=== PATIENT | female | born 1960 | race Caucasian/White ===

== ENCOUNTER 2017-06-07 11:32 | Inpatient (IN) | payer MEDICARE, MEDICAID ==
[~2017-06-07 11:32] MED LIST: AMLO5TAB2 PO; ASPI325T PO; CLON1TAB PO; DULO1CAP3 PO; LISI10TA3 PO; ONDANSETRON HCL 4 MG/2 ML VIAL IV PUSH ONE; PRAV40TA2 PO; PROPOFOL 200 MG/20 ML AMP IV ONE; TYLE650T9 PO; VITA100018 PO; ceFAZolin INJ 1,000 MG VIAL IV ONE; ePHEDrine/NS 25 MG/5 ML SYR IV ONE
[2017-06-07 11:40] VITALS: BP 140/64; PULSE 62; RESP 18; TEMP 97.7; O2SAT 98
--- NOTE | 2017-06-07 12:00 | RADRPT ---
EXAM DATE/TIME: 06/07/2017 11:42 [place] COMPARISON: No previous studies available for comparison. INDICATIONS : Left hand pain after smashing finger between weights MEDICAL HISTORY : None. SURGICAL HISTORY : None. ENCOUNTER: Initial ACUITY: 1 day PAIN SCORE: 10/10 LOCATION: Left 3rd digit FINDINGS: 2 views of the left hand demonstrate a comminuted displaced fracture of the third digit distal phalan x with extension of a fracture line into the distal interphalangeal joint. Fracture fragments are dis placed up to 4 mm. There is associated soft tissue swelling. There is also a tuft fracture of the sec ond digit distal phalanx. Mineralization is normal. No radiopaque foreign body is seen. CONCLUSION: 1. Comminuted displaced fracture of the third digit distal phalanx, as above. Fracture line extends i nto the interphalangeal joint. 2. There is a nondisplaced tuft fracture of the second digit distal phalanx. Papi Frye MD on June 07, 2017 at 11:56 Board Certified Radiologist. This report was verified electronically.
--- NOTE | 2017-06-07 12:29 | PD ---
HPI Chief Complaint: Injury Time Seen by Provider: 11:40 Travel History International Travel<30 days: No Contact w/Intl Traveler<30days: No Traveled to known affect area: No History of Present Illness HPI 56-year-old female with chief complaint of left second and third digit pain. She reports a 3 pound weight dropped from about 3 feet onto her left hand causing pain in the distal aspects of the second and third digit. She denies numbness or tingling. She has full range of motion of the digits. She reports the pain is constant, nonradiating, severity 8 out of 10. Tetanus immunization is up-to-date. PFSH Past Medical History Bipolar Disorder: Yes High Cholesterol: Yes Hypertension: Yes Psychiatric: Yes (MULTIPLE PERSONALITIES) Influenza Vaccination: No ?: Not Past Surgical History Eye Surgery: Yes (CATARACTS) Hysterectomy: Yes Tonsillectomy: Yes Social History Alcohol Use: Yes (VERY RARELY) Tobacco Use: No Substance Use: No Allergies-Medications (Allergen,Severity, Reaction): Coded Allergies: Lyrica (Verified Allergy, Severe, Rash, 06/07/17) Neurontin (Verified Allergy, Severe, Psychosis, 06/07/17) Cerumenex (Verified Allergy, Unknown, rash, 06/07/17) Reported Meds & Prescriptions Reported Meds & Active Scripts Active Reported Amlodipine (Amlodipine Besylate) 5 Mg Tab 10 Mg PO DAILY Aspirin 325 Mg Tab 325 Mg PO DAILY Clonazepam 1 Mg Tab 1 Mg PO QID Duloxetine DR (Duloxetine HCl) 60 Mg Capdr 60 Mg PO DAILY Lisinopril 10 Mg Tab 10 Mg PO DAILY Pravastatin 40 Mg Tab 40 Mg PO DAILY Review of Systems Except as stated in HPI: all other systems reviewed are Neg General / Constitutional: No: Fever Eyes: No: Visual changes HENT: No: Headaches Cardiovascular: No: Chest Pain or Discomfort Respiratory: No: Shortness of Breath Physical Exam Narrative GENERAL: Well-nourished, well-developed patient. SKIN: Focused skin assessment warm/dry. 0.25 cm avulsion skin injury left third digit distal lateral aspect. HEAD: Normocephalic. EYES: No scleral icterus. No injection or drainage. NECK: Supple, trachea midline. No JVD or lymphadenopathy. CARDIOVASCULAR: Regular rate and rhythm without murmurs, gallops, or rubs. RESPIRATORY: Breath sounds equal bilaterally. No accessory muscle use. GASTROINTESTINAL: Abdomen soft, non-tender, nondistended. MUSCULOSKELETAL: No cyanosis, or edema. Left hand: Third digit: Notable swelling/ecchymosis/tenderness to the distal phalanx with subungual hematoma. No nail bed injury. 0.25 cm avulsion skin injury left third digit distal lateral aspect. Second digit: Tenderness to the distal phalanx. No deformity. Normal sensation. BACK: Nontender without obvious deformity. No CVA tenderness. Data Data Last Documented VS Vital Signs Date Time Temp Pulse Resp B/P Pulse Ox O2 Delivery O2 Flow Rate FiO2 06/07/17 11:40 97.7 62 18 140/64 98 Orders Hand, Limited (2vws) (06/07/17 ) Basic Metabolic Panel (Bmp) (06/07/17 12:43) Complete Blood Count With Diff (06/07/17 12:43) Prothrombin Time / Inr (Pt) (06/07/17 12:43) Act Partial Throm Time (Ptt) (06/07/17 12:43) Electrocardiogram (06/07/17 12:43) Iv Access Insert/Monitor (06/07/17 12:43) Cefazolin 2 Gm Premix (Ancef 2 Gm Premix (06/07/17 12:45) Admit Order (Ed Use Only) (06/07/17 13:05) MDM Medical Decision Making Medical Screen Exam Complete: Yes Emergency Medical Condition: Yes Differential Diagnosis Crush injury, finger fracture, subungual hematoma, contusion Narrative Course 56-year-old female with left second and third digit injury caused by falling 3 pound weight. The extremity is neurovascular intact.: X-ray of the left hand comminuted displaced fracture extending into the IP joint of the left third distal phalanx. Nondisplaced comminuted fracture of the left second distal phalanx. Case was discussed with on-call hand surgeon who would like to take the patient to the OR for pinning and fracture repair. Case also discussed with hospitalist who agreed to admit patient. Physician Communication Physician Communication [id number] SPOKE WITH meteorologist liaison hand surgeon Dr. Jansen he would like to take patient to the OR for repair today. He is requesting PT be admitted to medicine. [id number]: spoke with Dr. Calderon who agrees to admit patient. Diagnosis Primary Impression: Fracture of distal phalanx of finger Qualified Code: S62.633B - Open displaced fracture of distal phalanx of left middle finger, initial encounter Additional Impression: Distal phalanx or phalanges, closed fracture Qualified Code: S62.661A - Closed nondisplaced fracture of distal phalanx of left index finger, initial encounter Admitting Information Admitting Physician Requests: Admit Alberta Caal Jun 07, 2017 12:29
[2017-06-07] MEDS ORDERED: ceFAZolin 2 GM PREMIX 50 ML IV ONE (12:45)
[2017-06-07 13:22] LABS: AUTOMATED NEUTROPHIL # 6.1 TH/MM3 (1.8-7.7); BASOPHIL # 0.2 TH/MM3 (0-0.2); BASOPHIL % 1.7 % (0.0-2.0); EOSINOPHIL % 0.2 % (0.0-4.0); HEMO FLAGS DIFF FINAL; LYMPH % 28.4 % (9.0-44.0); LYMPHOCYTE # 2.7 TH/MM3 (1.0-4.8); MEAN CELL VOLUME 94.9 FL (80.0-100.0); MEAN CORPUSCULAR HEMOGLOBIN 31.9 PG (27.0-34.0); MEAN CORPUSCULAR HGB CONC 33.6 % (32.0-36.0); MONO % 4.5 % (0.0-8.0); NEUT % 65.2 % (16.0-70.0); PLATELET COUNT 257 TH/MM3 (150-450); RED BLOOD COUNT 4.53 MIL/MM3 (4.00-5.30); RED CELL DISTRIBUTION WIDTH 11.7 % (11.6-17.2); WHITE BLOOD COUNT 9.4 TH/MM3 (4.0-11.0)
[2017-06-07 13:42] LABS: PROTHROMBIN TIME - PATIENT 10.5 SEC (9.8-11.6)
[2017-06-07] MEDS ORDERED: MAGNESIUM HYDROXIDE SUSP 30 ML CUP PO PRN (13:45)
[2017-06-07] MEDS ORDERED: NALOXONE HCL 0.4 MG/ML AMP IV PRN (13:45)
[2017-06-07] MEDS ORDERED: BISACODYL 10 MG SUPP RECTAL PRN (13:45)
[2017-06-07] MEDS ORDERED: ACETAMINOPHEN 325 MG TAB PO PRN (13:45)
[2017-06-07] MEDS ORDERED: MORPHINE SULFATE 4 MG/ML INJ IV PUSH ONE (13:45)
[2017-06-07] MEDS ORDERED: ONDANSETRON HCL 4 MG/2 ML VIAL IVP PRN (13:45)
[2017-06-07] MEDS ORDERED: LACTULOSE SYRUP 20 GM/30 ML CUP PO PRN (13:45)
[2017-06-07] MEDS ORDERED: SODIUM CHLORIDE 0.9% FLUSH 10 ML FLUSH IV FLUSH PRN (13:45)
[2017-06-07] MEDS ORDERED: SENNOSIDES 8.6 MG TAB PO PRN (13:45)
[2017-06-07] MEDS: SODIUM CHLOR 0.9% 1000 ML INJ 1,000 ML IV SCH (13:53)
[2017-06-07 14:46] LABS: POTASSIUM 4.4 MEQ/L (3.5-5.1)
[2017-06-07 14:49] LABS: BICARBONATE 26.4 MEQ/L (21.0-32.0)
[2017-06-07 14:51] VITALS: BP 132/60; PULSE 64; RESP 18; O2SAT 99
[2017-06-07] MEDS ORDERED: BUPIVACAINE HCL PF 0.5% 30 ML VIAL ONE (15:31)
[2017-06-07] MEDS ORDERED: LIDOCAINE HCL 2% 50 ML VIAL ONE (15:31)
[2017-06-07] MEDS ORDERED: NEOMYCIN/POLYMYXIN 1 ML G.U. IRRIGANT ONE (15:31)
--- NOTE | 2017-06-07 15:35 | MH ---
cc: KLEVER BABIN M.D.,JAWED DATE OF ADMISSION: 06/07/2017 DATE OF : 1960 REASON FOR ADMISSION Pain and swelling of index, middle and third finger of the left hand after a pound of lead fell on it. HISTORY OF PRESENT ILLNESS The patient is a very pleasant 56-year-old female with significant past medical history of hypertension, retinitis pigmentosa, legally blind, hyperlipidemia, who came to the ER after she was trying to correct machine and as per patient a pound of lead fell on her fingers. The patient had severe pain and swelling so she came to the ER. In the ER she was evaluated by the ER physician. As per ER documentation three pounds of weight dropped from approximately 3 feet. Since then she has pain in the index finger and middle finger. There is no numbness or tingling sensation. There are no other associated symptoms. The ER PA did tell me that they informed the hand surgeon who will come and do a surgery either today or tomorrow. PAST MEDICAL HISTORY 1. Hypertension. 2. Retinitis pigmentosa. 3. Legally blind. 4. Hyperlipidemia. No history of heart attack. No history of hypothyroidism. No history of TIA or CVA. MEDICATIONS Reviewed. Please see EMR. ALLERGIES 1. LYRICA. 2. NEURONTIN. 3. CERUMENEX. SOCIAL HISTORY The patient does not smoke or do any drugs. She rarely drinks. FAMILY HISTORY Positive for retinitis pigmentosa and diabetes. REVIEW OF SYSTEMS As described above, otherwise negative for 10 systems. PHYSICAL EXAMINATION GENERAL: The patient is alert and oriented, well-built, well-nourished lying on the bed without any apparent distress. VITAL SIGNS: The patient is afebrile. Pulse 64, respiratory rate 18, blood pressure 132/60. Pulse ox is 99%. HEENT: Head is normocephalic. Negative conjunctival injection. No icterus. Mouth unremarkable. NECK: Supple. No increased JVD. Negative thyromegaly. Central trachea. LUNGS: Clear to auscultation. HEART: S1, S2 audible. Unable to hear any S3 gallop. ABDOMEN: Soft. No organomegaly. Positive bowel sounds. EXTREMITIES: No cyanosis noted. There is positive swelling with slight open area on the left middle finger distal area with a bluish hue under both nails of the index and middle finger. Positive tenderness. 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 Normal facial features. SKIN: Warm and dry. PSYCH: Appropriate mood and affect. INVESTIGATIONS CBC within normal limits. BUN 19, creatinine 0.94. PT, INR and APTT within normal limits. IMAGING X-ray of the hand was done which shows comminuted displaced fracture of the third digit distal phalanx; fracture line extending to the interphalangeal joint. There is a nondisplaced tuft fracture of the second digit distal phalanx. EKG EKG was done which shows sinus rhythm, rate of 54 beats per minute with IPPB. ASSESSMENT 1. Fracture of the middle finger and tuft of the distal index finger after three pounds of weight fell on it. 2. Hypertension. 3. Hyperlipidemia. PLAN 1. Admit to the floor. 2. Hand surgery consult. 3. IV hydration. 4. Pain medication and analgesics on an as-needed basis. 5. Antiemetics on an as-needed basis. 6. Continue home medication. 7. Monitor blood pressure. 8. Condition discussed with the patient. 9. Discussed with the RN. 10. Further recommendation to follow as per the patient's progress. Joseline Calderon MD JP/ROBIN /3:00 PM /3:13 PM
[2017-06-07] MEDS ORDERED: ceFAZolin INJ 1,000 MG VIAL IV ONE ×2 (17:12→18:12)
[2017-06-07] MEDS ORDERED: MIDAZOLAM HCL 2 MG/2 ML VIAL ONE (17:38)
[2017-06-07] MEDS ORDERED: FAMOTIDINE 20 MG/2 ML VIAL ONE (17:38)
[2017-06-07] MEDS ORDERED: ceFAZolin INJ 1,000 MG VIAL ONE (18:15)
[2017-06-07] MEDS ORDERED: BACITRACIN TOP OINT 15 GM TUBE ONE (18:53)
--- NOTE | 2017-06-07 19:17 | PD.OP ---
Operative Report Preoperative Diagnosis: (1) Displaced fracture of distal phalanx of left middle finger, initial encounter for open fracture Postoperative Diagnosis: (1) Displaced fracture of distal phalanx of left middle finger, initial encounter for open fracture Procedure: closed reduction and internal fixation with k-wires distal phalanx left middle finger Anesthesia: general Surgeon: Bradley Jefferson Crop Scout(s): stepan Operation and Findings: comminuted displaced distal phalanx fracture with intra articular extension distal phalanx left middle finger Bradley Jefferson MD Jun 07, 2017 19:17
[2017-06-07] MEDS: MORPHINE SULFATE 4 MG/ML INJ IV PUSH PRN (19:50)
[2017-06-07 20:00] VITALS: BP 115/60; PULSE 63; RESP 20; TEMP 97.3; O2SAT 94
--- NOTE | 2017-06-07 20:56 | MB ---
cc: ELIANE SILVA DATE OF CONSULTATION June 07, 2017 REASON FOR CONSULTATION Crushing injury left hand. HISTORY OF PRESENT ILLNESS The patient is a 56-year-old right-hand dominant female who presented with complaints of crushing injury to the left hand. The patient states a 3 pound lead weight fell on her left hand while she was trying to fix a lisa, resulted in crushing injury to the left middle and ring fingers. Patient complains of pain of middle and ring fingers. She also complains of open wound over the middle finger region. Denies any numbness. PAST MEDICAL HISTORY Significant for COPD. PHYSICAL EXAMINATION GENERAL: The patient is alert, oriented x3. DIRECTED EXAMINATION: Examination of left hand reveals laceration over the ulnar pulp of the middle finger. Ecchymosis noted over the pulp region. Subungual hematoma noted. Tenderness noted over the distal phalanx region. Range of motion of the middle finger is limited and painful. Tenderness noted over the distal phalanx region of the ring finger and subungual hematoma noted over the nail plate which is less than 25%. Ecchymosis noted over the pulp region. Tenderness noted over the pulp region. No evidence of compartment syndrome of the pulp noted. She has intact distal circulation distally. IMAGING STUDIES X-rays of the left hand shows a comminuted displaced distal phalanx fracture with ____ extension involving the middle finger. There is comminuted distal tuft fracture involving the index finger. ASSESSMENT A 56-year-old female with open comminuted displaced distal phalanx fracture left middle finger and comminuted distal tuft fracture left index finger. PLAN Plan will be to take the patient emergently to OR for closed reduction/open with possible fixation of the distal phalanx fracture left middle finger. Patient explained risks and benefits of the procedure. Eliane Silva MD SE/MARYANN /7:22 PM /8:38 PM
[2017-06-07] MEDS: DOCUSATE SODIUM 50 MG/SENNA 8.6 MG TAB PO SCH (21:00)
[2017-06-07] MEDS: clonazePAM 1 MG TAB PO SCH (21:01)
[2017-06-07] MEDS: SODIUM CHLORIDE 0.9% FLUSH 10 ML FLUSH IV FLUSH SCH (21:02)
--- NOTE | 2017-06-07 22:57 | MP ---
cc: ELIANE SILVA DATE OF SURGERY 06/07/17 PREOPERATIVE DIAGNOSIS Comminuted displaced intra-articular fracture open distal phalanx, left middle finger. POSTOPERATIVE DIAGNOSIS Open comminuted displaced distal phalanx fracture, left middle finger. PROCEDURE Closed reduction, internal fixation distal phalanx fracture, left middle finger. SURGEON Dr. Silva ANESTHESIA General. ESTIMATED BLOOD LOSS 5 cc. TOURNIQUET TIME No tourniquet was used. IMPLANTS USED 0.028 K-wires x2. INDICATIONS The patient is a 56-year-old female who presented to ED with complaints of crushing injury to the left hand. She was found to have open fracture, comminuted and displaced distal phalanx with intra-articular extension and questionable subluxation. She also had closed distal phalanx fracture of the ring finger. She was consented for close/open reduction, internal fixation of the distal phalanx left middle finger. The patient was explained the risks and benefits of the procedure. PROCEDURE IN DETAIL The patient was brought to the operating room, under general anesthesia the left upper extremity was thoroughly prepped and draped. The part was thoroughly wash. Closed reduction was carried out. The patient had comminuted fracture with intra-articular extension and displacement. Initially, the articular surface was reduced and K-wire was introduced in a dorsal to volar direction capturing the articular surface, reducing the articular surface. Another 0.028 K-wire was introduced in medial to lateral direction capturing the main shaft fragment. I was not ___ obtain reduction of the distal tuft fracture because of the small fragment size. Decision was made to leave that displaced distal tuft fracture alone as articular surface was reduced decision was made to ___ the procedure at this level. Thorough wash was given and the pins were cut short and protected Elver balls. Xeroform, bacitracin, dressing applied, finger dressing was applied and a finger splint was applied. The patient had good distal circulation at the end of the procedure. ___ of the nail plate was done to evacuate the hematoma. The patient was sent to recovery in stable condition. Plan will be to keep her overnight for pain control and discharge tomorrow with p.o. antibiotics and pain medications. MD JUDY Avila /7:18 PM /10:42 PM
[2017-06-08] VITALS: BP 98/62; PULSE 57; RESP 20; TEMP 97; O2SAT 95
[2017-06-08] MEDS: MORPHINE SULFATE 4 MG/ML INJ IV PUSH PRN ×3 (00:07→10:11)
[2017-06-08] MEDS: SODIUM CHLOR 0.9% 1000 ML INJ 1,000 ML IV SCH ×2 (00:08→10:22)
[2017-06-08 03:48] VITALS: BP 128/65; PULSE 56; RESP 18; TEMP 98.3; O2SAT 96
[2017-06-08 08:00] VITALS: BP 105/58; PULSE 62; RESP 18; TEMP 97.2; O2SAT 95
[2017-06-08] MEDS ORDERED: DULoxetine HCl DR 60 MG CAP PO SCH (09:00)
[2017-06-08] MEDS ORDERED: ASPIRIN 325 MG TAB PO SCH (09:00)
[2017-06-08] MEDS ORDERED: LISINOPRIL 10 MG TAB PO SCH (09:00)
[2017-06-08] MEDS: SODIUM CHLORIDE 0.9% FLUSH 10 ML FLUSH IV FLUSH SCH (09:00)
[2017-06-08] MEDS ORDERED: PRAVASTATIN SOD 40 MG TAB PO SCH (09:00)
[2017-06-08] MEDS: DOCUSATE SODIUM 50 MG/SENNA 8.6 MG TAB PO SCH (10:13)
[2017-06-08] MEDS: clonazePAM 1 MG TAB PO SCH ×2 (10:14→12:46)
--- NOTE | 2017-06-08 11:02 | HHI.PR ---
Subjective Remarks pt has some pain meds helping her good no complaint patient wants to go home ROS for 10 point system is uremarkable Objective Objective Results - Vital Signs Date Time Temp Pulse Resp B/P Pulse Ox O2 Delivery O2 Flow Rate FiO2 06/08/17 08:00 97.2 62 18 105/58 95 06/08/17 03:48 98.3 56 18 128/65 96 06/08/17 00:00 97.0 57 20 98/62 95 06/07/17 20:00 97.3 63 20 115/60 94 06/07/17 20:00 97.5 60 15 114/59 99 Room Air 06/07/17 19:47 84 18 149/89 96 Room Air 06/07/17 19:32 63 15 117/68 96 Nasal Cannula 3 06/07/17 19:17 98.1 79 16 139/65 98 Nasal Cannula 3 06/07/17 14:51 64 18 132/60 99 06/07/17 11:40 97.7 62 18 140/64 98 I/O 06/07/17 06/07/17 06/07/17 06/08/17 06/08/17 06/08/17 07:00 15:00 23:00 07:00 15:00 23:00 Intake Total 1400 ml 480 ml Balance 1400 ml 480 ml Intake Oral 100 ml 480 ml IV Total 300 ml Other 1000 ml # Voids 1 Result Diagram: 06/07/17 1313 06/07/17 1418 Other Results Laboratory Tests Test 06/07/17 06/07/17 13:13 14:18 White Blood Count 9.4 Red Blood Count 4.53 Hemoglobin 14.4 Hematocrit 43.0 Mean Corpuscular Volume 94.9 Mean Corpuscular Hemoglobin 31.9 Mean Corpuscular Hemoglobin 33.6 Concent Red Cell Distribution Width 11.7 Platelet Count 257 Mean Platelet Volume 8.4 Neutrophils (%) (Auto) 65.2 Lymphocytes (%) (Auto) 28.4 Monocytes (%) (Auto) 4.5 Eosinophils (%) (Auto) 0.2 Basophils (%) (Auto) 1.7 Neutrophils # (Auto) 6.1 Lymphocytes # (Auto) 2.7 Monocytes # (Auto) 0.4 Eosinophils # (Auto) 0.0 Basophils # (Auto) 0.2 CBC Comment DIFF FINAL Differential Comment Prothrombin Time 10.5 Prothromb Time International 1.0 Ratio Activated Partial 28.0 Thromboplast Time Sodium Level 137 Potassium Level 4.4 Chloride Level 103 Carbon Dioxide Level 26.4 Anion Gap 8 Blood Urea Nitrogen 19 Creatinine 0.94 Estimat Glomerular Filtration 62 Rate Random Glucose 104 Calcium Level 9.1 Physical Exam Physical Exam GENERAL: The patient is alert and oriented, well-built, well-nourished lying on the bed without any apparent distress. HEENT: Head is normocephalic. Negative conjunctival injection. No icterus. Mouth unremarkable. NECK: Supple. No increased JVD. Negative thyromegaly. Central trachea. LUNGS: Clear to auscultation. HEART: S1, S2 audible. Unable to hear any S3 gallop. ABDOMEN: Soft. No organomegaly. Positive bowel sounds. EXTREMITIES: No cyanosis noted. dressing on left middle finger post sx CHILDCARE PROVIDER: Alert and oriented. Normal facial features. SKIN: Warm and dry. PSYCH: Appropriate mood and affect. A/P Assessment and Plan 1. Fracture of the middle finger and tuft of the distal index finger after three pounds of weight fell on it. 2. Hypertension. 3. Hyperlipidemia. PLAN 1. Seen on the floor 2. Hand surgery consultation and help appreciated. Status post surgery postop day #1. Closed reduction internal fixation of distal phalanx fracture 3. On IV hydration. 4. Pain medication and analgesics on an as-needed basis. 5. Antiemetics on an as-needed basis. 6. Continue home medication. 7. Stable blood pressure. 8. Condition discussed with the patient. 9. Discussed with the RN. 10. If okay with surgeon made DC home today on by mouth analgesics and by mouth antibiotics Joseline Calderon MD Jun 08, 2017 11:02
[2017-06-08] MEDS ORDERED: LEVO500T8 PO (11:12)
[2017-06-08] MEDS ORDERED: HYDR-3288 PO (11:12)
[2017-06-08 12:00] VITALS: BP 104/56; PULSE 73; RESP 18; TEMP 98.2; O2SAT 94
--- NOTE | 2017-06-08 13:52 | EKG ---
Date Performed: 06/07/2017 Time Performed: 12:55:33 PTAGE: 56 years EKG: SINUS BRADYCARDIA RIGHT BUNDLE BRANCH BLOCK Compared to previous tracing, there is a new ri ght bundle branch block. ABNORMAL ECG PREVIOUS TRACING : 05/12/2007 23.01 DOCTOR: Cristhian Prieto Interpretating Date/Time 06/08/2017 13:50:48
== END 2017-06-08 14:00 | disposition home or self-care (01) | DRG 514 ==
LOC: PHEFT 11:32 → PHEDA 13:07 → PH3A 15:09
PROVIDERS: ADMIT Family Medicine; ATTEND Family Medicine
PROC: 0PSV34Z Reposition Left Finger Phalanx with Internal Fixation Device, Percutaneous Approach (ICD-10-PCS; principal; 2017-06-07 17:51)
DX: S62.633B Displaced fracture of distal phalanx of left middle finger, initial encounter for open fracture (principal); S62.631A Displaced fracture of distal phalanx of left index finger, initial encounter for closed fracture; I10 Essential (primary) hypertension; W22.8XXA Striking against or struck by other objects, initial encounter; Y93.9 Activity, unspecified; Y92.9 Unspecified place or not applicable; J44.9 Chronic obstructive pulmonary disease, unspecified; E78.5 Hyperlipidemia, unspecified; H35.52 Pigmentary retinal dystrophy; H54.8 Legal blindness, as defined in USA
CPT/HCPCS: 73120; 76000; 80048; 85025; 85610; 85730; 93005; 99285; J0690; J2250; J2270; J2405; J3010; J7030